=== PATIENT | male | born 1945 | race Caucasian/White ===

== ENCOUNTER 2016-11-08 17:57 | Emergency (ER) | payer MEDICARE, BC ==
[~2016-11-08] VITALS: Ht 167.6 cm; Wt 64.5 kg
[~2016-11-08 17:57] MED LIST: LORTAB 5/500 501 TAB PO; NO HOME MEDICATIONS
[2016-11-08 18:00] VITALS: BP 112/77; TEMP 97.8
[2016-11-08] MEDS ORDERED: B-121000 MCG PO (18:27)
[2016-11-08] MEDS ORDERED: PRIL40 PO (18:27)
[2016-11-08] MEDS ORDERED: AMITIZA24 MCG PO (18:28)
[2016-11-08] MEDS ORDERED: SINEMET 25/101 UDTAB PO (18:29)
[2016-11-08] MEDS ORDERED: NORCO 325 MG-51 TAB PO (19:28)
[2016-11-08 19:39] VITALS: PULSE 87
== END 2016-11-08 19:40 | disposition home or self-care (01) ==
LOC: COL.ER 17:57
DX: S76.012A Strain of muscle, fascia and tendon of left hip, initial encounter (principal); X50.1XXA Overexertion from prolonged static or awkward postures, initial encounter; Y92.318 Other athletic court as the place of occurrence of the external cause; G20 Parkinson's disease; Z86.12 Personal history of poliomyelitis

== ENCOUNTER 2016-12-13 14:30 | Outpatient (RCR) | payer MEDICARE, BC ==
[~2016-12-13 14:30] MED LIST changes: +AMITIZA24 MCG PO; +B-121000 MCG PO; +NORCO 325 MG-51 TAB PO; +PRIL40 PO; +SINEMET 25/101 UDTAB PO
== END 2016-12-26 | disposition home or self-care (01) ==
LOC: MKS.ESL.PT
DX: G20 Parkinson's disease (principal)
CPT/HCPCS: G8987-GO; G8988-GO; G8989-GO; G8990-GP; G8991-GP

== ENCOUNTER 2016-12-28 13:01 | Outpatient (RCR) | payer MEDICARE, BC | END 2016-12-29 09:30 | disposition home or self-care (01) | LOC: MKS.ESL.PT 13:01 | DX: S76.012D Strain of muscle, fascia and tendon of left hip, subsequent encounter (principal); M75.02 Adhesive capsulitis of left shoulder; G20 Parkinson's disease | CPT/HCPCS: G8991-GP; G8992-GP ==

== ENCOUNTER 2017-01-26 10:19 | Emergency (ER) | payer MEDICARE, BC ==
[~2017-01-26] VITALS: Ht 167.6 cm; Wt 64.5 kg
[2017-01-26 10:32] VITALS: TEMP 97
[2017-01-26 12:08] LABS: BASO # 0.1 (0.0-0.2); BASO % 0.8 % (0.0-2.0); EOS # 0.1 (0.0-0.7); EOS % 1.3 % (0-4.0); GRAN # 3.7 (1.4-6.5); GRAN % 62.9 % (42.2-75.2); HEMATOCRIT 40.2 % (42.0-52.0); HEMOGLOBIN 13.9 g/dl (13.5-18.0); LYMPH # 1.5 (1.2-3.4); LYMPH % 25.4 % (20.0-51.0); MEAN CELL VOLUME 93 fl (80.0-100.0); MEAN CORPUSCULAR HEMOGLOBIN 32 pg (27.0-31.0); MEAN CORPUSCULAR HGB CONC 35 g/dl (33.0-37.0); MEAN PLATELET VOLUME 12.3 fl (7.4-10.4); MONO # 0.6 (0.1-0.6); MONO % 9.4 % (1.7-9.3); PLATELET COUNT 146 K/mm3 (130-400); RED BLOOD COUNT 4.31 M/mm3 (4.20-5.60); REDCELL DISTRIBUTION WIDTH-CV 11.9 % (11.5-14.5); WHITE BLOOD COUNT 5.9 K/mm3 (4.8-10.8)
[2017-01-26 12:19] LABS: ADJUSTED CALCIUM 9.1 mg/dL (8.4-10.2); ALANINE AMINOTRANSFERASE 18 U/L (21-72); ALBUMIN 3.6 gm/dL (3.5-5.0); ALKALINE PHOSPHATASE 47 U/L (50-136); ANION GAP 7 mmol/L (7-16); BILIRUBIN,TOTAL 0.6 mg/dL (0.0-1.0); BLOOD UREA NITROGEN 22 mg/dL (9-20); CALCIUM 8.8 mg/dL (8.4-10.2); CARBON DIOXIDE 27 mmol/L (22-30); CHLORIDE 104 mmol/L (98-107); CREATININE, serum 1.07 mg/dL (0.66-1.25); GLUCOSE 95 mg/dL (74-106); POTASSIUM 4.4 mmol/L (3.4-5.0); SODIUM 138 mmol/L (137-145); TOTAL PROTEIN 6.3 gm/dL (6.4-8.2)
[2017-01-26 12:23] LABS: C-REACTIVE PROTEIN < 0.5 mg/dL (0.0-0.9)
[2017-01-26 12:30] LABS: TROPONIN-I < 0.012 ng/mL (0.000-0.034)
[2017-01-26 12:45] LABS: PH 6 (5-8); SQUAMOUS EPITHELIAL None Seen /hpf; URINE APPEARANCE Clear; URINE BACTERIA None Seen /hpf; URINE BILIRUBIN Negative (NEGATIVE); URINE BLOOD Negative (NEGATIVE); URINE COLOR Yellow; URINE GLUCOSE Negative (NEGATIVE); URINE KETONE Trace (NEGATIVE); URINE RBC 0-2 /hpf; URINE UROBILINOGEN Negative (NEGATIVE); URINE WBC 0-2 /hpf
[2017-01-26 13:45] VITALS: BP 131/85; PULSE 66
== END 2017-01-26 14:16 | disposition home or self-care (01) ==
LOC: COL.ER 10:19
PROVIDERS: Emergency Medicine
DX: I95.1 Orthostatic hypotension (principal); E86.0 Dehydration; G20 Parkinson's disease; Z86.79 Personal history of other diseases of the circulatory system
CPT/HCPCS: J7030

== ENCOUNTER 2018-02-04 11:13 | Emergency (ER) | payer MEDICARE, BC ==
[~2018-02-04] VITALS: Ht 167.6 cm; Wt 66.4 kg
[2018-02-04 11:19] VITALS: TEMP 97.7
[2018-02-04 11:41] LABS: BASO % 0.6 % (0.0-2.0); EOS # 0.1 (0.0-0.7); EOS % 1.7 % (0-4.0); GRAN # 4.2 (1.4-6.5); GRAN % 63.2 % (42.2-75.2); HEMATOCRIT 40.6 % (42.0-52.0); LYMPH # 1.7 (1.2-3.4); LYMPH % 26.3 % (20.0-51.0); MEAN CELL VOLUME 93 fl (80.0-100.0); MEAN CORPUSCULAR HEMOGLOBIN 32 pg (27.0-31.0); MEAN CORPUSCULAR HGB CONC 35 g/dl (33.0-37.0); MEAN PLATELET VOLUME 11.5 fl (7.4-10.4); MONO # 0.5 (0.1-0.6); PLATELET COUNT 176 K/mm3 (130-400); RED BLOOD COUNT 4.39 M/mm3 (4.20-5.60)
[2018-02-04 11:51] LABS: PROTHROMBIN TIME 11.6 SECONDS (9.7-12.8)
[2018-02-04 12:00] LABS: ALANINE AMINOTRANSFERASE 19 U/L (21-72); ALBUMIN 3.8 gm/dL (3.5-5.0); ALKALINE PHOSPHATASE 44 U/L (50-136); ANION GAP 9 mmol/L (7-16); AST,SGOT 19 U/L (15-37); BILIRUBIN,TOTAL 0.5 mg/dL (0.0-1.0); BLOOD UREA NITROGEN 18 mg/dL (9-20); CALCIUM 8.8 mg/dL (8.4-10.2); CARBON DIOXIDE 27 mmol/L (22-30); CHLORIDE 104 mmol/L (98-107); CREATININE, serum 1.16 mg/dL (0.66-1.25); GLUCOSE 111 mg/dL (74-106); POTASSIUM 3.8 mmol/L (3.4-5.0); SODIUM 140 mmol/L (137-145); TOTAL PROTEIN 6.9 gm/dL (6.4-8.2)
[2018-02-04] MEDS ORDERED: B-121000 MCG PO (12:11)
[2018-02-04 12:12] LABS: TROPONIN-I < 0.012 ng/mL (0.000-0.034)
[2018-02-04 14:50] VITALS: BP 142/87; PULSE 55
== END 2018-02-04 14:50 | disposition home or self-care (01) ==
LOC: COL.ER 11:13
PROVIDERS: Emergency Medicine
DX: I95.9 Hypotension, unspecified (principal); G20 Parkinson's disease; Z98.890 Other specified postprocedural states
CPT/HCPCS: J7030

== ENCOUNTER 2019-12-10 08:43 | Emergency (ER) | payer MEDICARE, BC ==
[~2019-12-10] VITALS: Ht 170.2 cm; Wt 61.8 kg
[2019-12-10 08:50] VITALS: TEMP 97.7
[2019-12-10] MEDS ORDERED: PARCOPA 25/101 UDTAB NG (09:42)
[2019-12-10] MEDS ORDERED: PROAMATINE 5MG T5 MG PO (09:46)
[2019-12-10] MEDS ORDERED: REMERON 15M15 MG/TA1 PO (09:48)
[2019-12-10] MEDS ORDERED: AMITIZA24 MCG PO (09:49)
[2019-12-10] MEDS ORDERED: EXELON4.5 MG PO (09:50)
[2019-12-10] MEDS ORDERED: ZOLOFT 50MG50 MG PO (09:51)
[2019-12-10] MEDS ORDERED: SINEMET CR 50 M1 TER PO (09:51)
[2019-12-10] MEDS ORDERED: FLORINEF ACETA0.1 MG PO (09:52)
[2019-12-10] MEDS ORDERED: NIZORAL SHAMPO120 M1 TP (09:53)
[2019-12-10 11:02] VITALS: BP 158/89; PULSE 67
== END 2019-12-10 10:54 | disposition home or self-care (01) ==
LOC: COL.ER 08:43
DX: S00.83XA Contusion of other part of head, initial encounter (principal); G20 Parkinson's disease; W01.10XA Fall on same level from slipping, tripping and stumbling with subsequent striking against unspecified object, initial encounter; Y93.01 Activity, walking, marching and hiking; Y92.410 Unspecified street and highway as the place of occurrence of the external cause

== ENCOUNTER → 2020-11-22 | Outpatient (CLI) | payer MEDICARE, BC ==
[~2020-11-22] MED LIST changes: +EXELON4.5 MG PO; +FLORINEF ACETA0.1 MG PO; +NIZORAL SHAMPO120 M1 TP; +PARCOPA 25/101 UDTAB NG; +PROAMATINE 5MG T5 MG PO; +REMERON 15M15 MG/TA1 PO; +SINEMET CR 50 M1 TER PO; +ZOLOFT 50MG50 MG PO
[2020-11-22 18:45] LABS: COLLECTION METHOD CLEAN CATCH
[2020-11-22 18:55] LABS: MUCOUS Present /lpf; PH 7 (5-8); SQUAMOUS EPITHELIAL None Seen /hpf; URINE APPEARANCE Clear; URINE BACTERIA None Seen /hpf; URINE BILIRUBIN Negative (NEGATIVE); URINE BLOOD Negative (NEGATIVE); URINE COLOR Yellow; URINE GLUCOSE Negative (NEGATIVE); URINE KETONE Negative (NEGATIVE); URINE LEUKOCYTE ESTERASE Negative (NEGATIVE); URINE NITRATE Negative (NEGATIVE); URINE PROTEIN(semi-quant) Negative (NEGATIVE); URINE RBC None Seen /hpf; URINE UROBILINOGEN Negative (NEGATIVE); URINE WBC 0-2 /hpf
== END ==
LOC: ZCOL.LAB 13:40
PROVIDERS: Family Medicine
DX: N39.0 Urinary tract infection, site not specified (principal)

== ENCOUNTER 2020-12-26 06:08 | Emergency (ER) | payer MEDICARE, BC ==
[~2020-12-26] VITALS: Ht 172.7 cm; Wt 61.4 kg
[2020-12-26 06:56] LABS: BASO % 0.6 % (0.0-2.0); EOS # 0.1 (0.0-0.7); GRAN # 5.1 (1.4-6.5); GRAN % 75.3 % (42.2-75.2); HEMATOCRIT 42.3 % (42.0-52.0); HEMOGLOBIN 14.3 g/dl (13.5-18.0); LYMPH % 14.9 % (20.0-51.0); MEAN CELL VOLUME 94 fl (80.0-100.0); MEAN CORPUSCULAR HEMOGLOBIN 32 pg (27.0-31.0); MEAN CORPUSCULAR HGB CONC 34 g/dl (33.0-37.0); MEAN PLATELET VOLUME 12.3 fl (7.4-10.4); MONO # 0.5 (0.1-0.6); MONO % 7.8 % (1.7-9.3); PLATELET COUNT 174 K/mm3 (130-400); RED BLOOD COUNT 4.52 M/mm3 (4.20-5.60); REDCELL DISTRIBUTION WIDTH-CV 12.6 % (11.5-14.5)
[2020-12-26 07:12] LABS: ALBUMIN 4.3 gm/dL (3.5-5.0); ALKALINE PHOSPHATASE 76 U/L (50-136); ANION GAP 4 mmol/L (7-16); AST,SGOT 13 U/L (15-37); BILIRUBIN,TOTAL 0.6 mg/dL (0.0-1.0); BLOOD UREA NITROGEN 15 mg/dL (9-20); CALCIUM 9.1 mg/dL (8.4-10.2); CARBON DIOXIDE 32 mmol/L (22-30); CHLORIDE 104 mmol/L (98-107); CREATININE, serum 0.96 (0.66-1.25); GLUCOSE 91 mg/dL (74-106); LIPASE 83 U/L (23-300); POTASSIUM 3.6 mmol/L (3.4-5.0); SODIUM 140 mmol/L (137-145); TOTAL PROTEIN 7.7 gm/dL (6.4-8.2)
[2020-12-26 07:13] LABS: ALANINE AMINOTRANSFERASE < 4 U/L (4-49); C-REACTIVE PROTEIN < 0.5 mg/dL (0.0-0.9)
[2020-12-26 07:29] LABS: COLLECTION METHOD CLEAN CATCH
[2020-12-26 07:38] LABS: MUCOUS Present /lpf; PH 7 (5-8); SQUAMOUS EPITHELIAL 0-2 /hpf; URINE APPEARANCE Hazy; URINE BACTERIA Moderate /hpf; URINE BILIRUBIN Negative (NEGATIVE); URINE BLOOD Negative (NEGATIVE); URINE COLOR Yellow; URINE GLUCOSE Negative (NEGATIVE); URINE KETONE Negative (NEGATIVE); URINE LEUKOCYTE ESTERASE Negative (NEGATIVE); URINE NITRATE Negative (NEGATIVE); URINE PROTEIN(semi-quant) Negative (NEGATIVE); URINE RBC 0-2 /hpf; URINE UROBILINOGEN Negative (NEGATIVE)
[2020-12-26 10:33] VITALS: TEMP 98.5
[2020-12-26 15:46] VITALS: BP 155/102; PULSE 95
== END 2020-12-26 15:46 ==
LOC: COL.ER 06:08
PROVIDERS: Emergency Medicine
DX: R45.1 Restlessness and agitation (principal); G20 Parkinson's disease; K21.9 Gastro-esophageal reflux disease without esophagitis; F32.9 Major depressive disorder, single episode, unspecified; Z79.899 Other long term (current) drug therapy
CPT/HCPCS: J2060; J7030

== ENCOUNTER → 2021-03-28 | Outpatient (CLI) | payer MEDICARE, BC ==
[2021-03-28 17:27] LABS: COLLECTION METHOD CLEAN CATCH
[2021-03-28 17:36] LABS: MUCOUS Present /lpf; PH 5 (5-8); SQUAMOUS EPITHELIAL None Seen /hpf; URINE APPEARANCE Turbid; URINE BACTERIA None Seen /hpf; URINE BILIRUBIN Negative (NEGATIVE); URINE BLOOD 2+ (NEGATIVE); URINE COLOR Amber; URINE GLUCOSE Negative (NEGATIVE); URINE KETONE Trace (NEGATIVE); URINE LEUKOCYTE ESTERASE 3+ (NEGATIVE); URINE NITRATE Negative (NEGATIVE); URINE PROTEIN(semi-quant) 2+ (NEGATIVE); URINE UROBILINOGEN Negative (NEGATIVE)
== END ==
LOC: ZCOL.LAB 17:16
PROVIDERS: Internal Medicine
DX: N39.0 Urinary tract infection, site not specified (principal)